=== PATIENT | female | born 1975 | race Caucasian/White ===

== ENCOUNTER 2017-06-10 10:18 | Outpatient (CLI) | payer OTHER ==
[2015-10-06 13:50] VITALS: BP 128/73
[2017-06-10 10:41] LABS: BASOPHILS % 0.5 (0.0-1.5); EOSINOPHILS % 3.2 % (0.0-6.8); MEAN CORPUSCULAR VOLUME 90.6 fl (80.0-100.0); MONOCYTES % 5.5 % (0.0-11.0); NEUTROPHILS # 3.6 # k/uL (1.4-7.7)
--- NOTE | 2017-06-10 15:39 | Diagnostic Imaging Report ---
Steff Oneill [facility] [address] [facility] [address] [address] Report Submission Date: Jun 10, 2017 11:14:34 AM ACID CONCENTRATOR Patient Study Name: SAQIB LAZARO Date: Jun 10, 2017 10:34:42 AM ACID CONCENTRATOR Modality Type: CR Gender: F Description: UPPER EXTREMITY : 79 Institution: [facility] Physician: Steff Oneill Examination: Plain film hands History: Hand discomfort Comparison exams: None available Findings: 3 views of the right and left hands demonstrate normal cortical margins. No fracture. No dislocation. Articulations without appreciable degenerative changes. No soft tissue abnormality. Impression: No acute osseous abnormality. Electronically signed on Jun 10, 2017 11:14:34 AM ACID CONCENTRATOR by: Holger ROSARIO
== END 2017-06-10 10:20 ==
LOC: LAB 10:18
PROVIDERS: ATTEND Internal Medicine Rheumatology
DX: M25.441 Effusion, right hand (principal); M25.442 Effusion, left hand; M06.4 Inflammatory polyarthropathy; R53.83 Other fatigue
CPT/HCPCS: 36415; 84443; 85025; 85651; 86140; 86200; 86812

== ENCOUNTER 2017-08-14 16:30 | Outpatient (CLI) | payer OTHER ==
[2015-10-06 13:50] VITALS: BP 128/73
[2017-08-14 16:48] LABS: BASOPHILS % 0.5 (0.0-1.5); EOSINOPHILS % 2.7 % (0.0-6.8); MEAN CORPUSCULAR HEMOGLOBIN 30.2 pg (28.0-34.0); MEAN CORPUSCULAR VOLUME 90.4 fl (80.0-100.0); MONOCYTES % 4.5 % (0.0-11.0); NEUTROPHILS # 5.8 # k/uL (1.4-7.7)
[2017-08-14 22:11] LABS: DIRECT BILIRUBIN <0.2 mg/dL (<0.4)
== END 2017-08-14 16:32 ==
LOC: LAB 16:30
PROVIDERS: ATTEND Internal Medicine Rheumatology
DX: L40.50 Arthropathic psoriasis, unspecified (principal); Z79.899 Other long term (current) drug therapy
CPT/HCPCS: 36415; 80076; 85025; 85651

== ENCOUNTER 2017-10-12 15:01 | Outpatient (CLI) | payer OTHER ==
[2015-10-06 13:50] VITALS: BP 128/73
--- NOTE | 2017-10-12 17:14 | Diagnostic Imaging Report ---
MARJORIE MARIE (TORRI) - OP [facility] [address] [facility].[address] [address] Report Submission Date: Oct 12, 2017 3:53:04 PM CDT Patient Study Name: SAQIB LAZARO Date: Oct 12, 2017 3:28:53 PM CDT Modality Type: DX Gender: F Description: LOWER EXTREMITY : 79 Institution: [facility] Physician: MARJORIE MARIE (TORRI) - OP Bilateral feet - 3 views Clinical history: BILATERAL FOOT PAIN X 2 MONTHS Findings: Examination of the right foot in plantar, lateral and oblique views demonstrates degenerative changes with calcaneal spurs on the lateral view. There is no evident fracture and no lytic or blastic lesion. Examination of the left foot in plantar, lateral and oblique views demonstrates postoperative changes consistent with previous ankle arthrodesis. Lag screws extending across the talonavicular joint are fractured at the level of the joint. Joint space is no longer visualized in the calcaneocuboid, talonavicular , tibiotalar or talocalcaneal joints. Impression: 1. Postoperative left ankle arthrodesis. 2. Degenerative changes. Electronically signed on Oct 12, 2017 3:53:04 PM CDT by: Ghulam ROSARIO
--- NOTE | 2017-10-13 06:30 | Diagnostic Imaging Report ---
DONI BRIGGS (AGRICULTURAL PRODUCTION ENGINEER) - ER [facility] [address] [address] [address] Report Submission Date: Oct 12, 2017 5:17:37 PM CDT Patient Study Name: JADON LAZARO Date: Oct 12, 2017 5:01:17 PM CDT Modality Type: DX Gender: F Description: UPPER EXTREMITY : [birth year] Institution: [facility] Physician: DONI BRIGGS (AGRICULTURAL PRODUCTION ENGINEER) - ER 2 views of the right elbow Clinical history: PAIN Findings: Examination of the right elbow in AP and lateral views fails to demonstrate evidence of fracture, dislocation or other bone or joint pathology. Electronically signed on Oct 12, 2017 5:17:37 PM CDT by: Ghulam ROSARIO
== END 2017-10-12 15:10 ==
LOC: RAD 15:01
PROVIDERS: ATTEND Nurse Practitioner Family
DX: M79.672 Pain in left foot (principal); M79.671 Pain in right foot

== ENCOUNTER 2017-10-22 09:41 | Outpatient (CLI) | payer OTHER ==
[2015-10-06 13:50] VITALS: BP 128/73
[2017-10-22 10:09] LABS: BASOPHILS % 0.4 (0.0-1.5); EOSINOPHILS % 1.4 % (0.0-6.8); MEAN CORPUSCULAR HEMOGLOBIN 30.8 pg (28.0-34.0); MEAN CORPUSCULAR VOLUME 92.8 fl (80.0-100.0); MONOCYTES % 6.1 % (0.0-11.0); NEUTROPHILS # 3.3 # k/uL (1.4-7.7)
[2017-10-22 18:21] LABS: DIRECT BILIRUBIN 0.2 mg/dL (<0.4); TOTAL PROTEIN 6.9 g/dL (6.0-8.5)
== END 2017-10-22 09:42 ==
LOC: LAB 09:41
PROVIDERS: ATTEND Internal Medicine Rheumatology
DX: L40.50 Arthropathic psoriasis, unspecified (principal)
CPT/HCPCS: 36415; 80076; 85025; 85651

== ENCOUNTER 2018-09-28 14:35 | Outpatient (CLI) | payer OTHER ==
[2015-10-06 13:50] VITALS: BP 128/73
--- NOTE | 2018-09-28 15:54 | Diagnostic Imaging Report ---
SHANTEL MARTINEZ [facility] [address] [facility] [address] [place] [address]. [id number] Report Submission Date: Sep 28, 2018 3:36:28 PM BLOWN FILM EXTRUSION OPERATOR Patient Study Name: SAQIB LAZARO Date: Sep 28, 2018 3:02:09 PM BLOWN FILM EXTRUSION OPERATOR Modality Type: DX Gender: F Description: BILAT FEET 3 VIEW : 79 Institution: [facility] Physician: SHANTEL MARTINEZ BILAT FEET 3 VIEW HISTORY: BILATERAL FOOT AND LEFT ANKLE PAIN. HX OF LEFT FOOT AND ANKLE SX. DENIES CHANCE OF . (Hx) COMPARISON: None FINDINGS: On the left side, the patient status post subtalar arthrodesis. The three horizontal screws traversing the talus and midfoot are fractured. An additional screw traverses the calcaneus. Flattening of the talus may be posttraumatic. No acute osseous fracture or dislocation is identified. There is diffuse soft tissue swelling. On the right side, the osseous structures are intact and well aligned without acute fracture or dislocation. There is mild tibiotalar osteoarthritis. Bone density is normal. IMPRESSION: 1. Left foot: Status post subtalar arthrodesis with fractures of multiple screws. 2. Right foot: Calcaneal spurs without acute fracture or dislocation. Electronically signed on Sep 28, 2018 3:36:28 PM BLOWN FILM EXTRUSION OPERATOR by: Jaspreet ROSARIO
--- NOTE | 2018-09-28 15:54 | Diagnostic Imaging Report ---
SHANTEL MARTINEZ [facility] [address] [facility] [address] [place] [address]. [id number] Report Submission Date: Sep 28, 2018 3:36:46 PM INDUSTRIAL SALES ENGINEER Patient Study Name: SAQIB LAZARO Date: Sep 28, 2018 3:02:09 PM INDUSTRIAL SALES ENGINEER Modality Type: DX Gender: F Description: ANKLE 3 VIEWS OR MORE : 79 Institution: [facility] Physician: SHANTEL MARTINEZ ANKLE 3 VIEWS OR MORE HISTORY: BILATERAL FOOT AND LEFT ANKLE PAIN. HX OF LEFT FOOT AND ANKLE SX. DENIES CHANCE OF . (Hx) COMPARISON: None FINDINGS: The patient status post subtalar arthrodesis. The three horizontal screws traversing the talus and midfoot are fractured. An additional screw traverses the calcaneus. Flattening of the talus may be posttraumatic. No acute osseous fracture or dislocation is identified. There is diffuse soft tissue swelling. IMPRESSION: Status post subtalar arthrodesis with fractures of multiple screws. Electronically signed on Sep 28, 2018 3:36:46 PM INDUSTRIAL SALES ENGINEER by: Jaspreet ROSARIO
== END 2018-09-28 14:36 ==
LOC: RAD 14:35
PROVIDERS: ATTEND Podiatrist Foot & Ankle Surgery
DX: M77.31 Calcaneal spur, right foot (principal); M79.672 Pain in left foot; Z87.81 Personal history of (healed) traumatic fracture
CPT/HCPCS: 73610

== ENCOUNTER 2018-10-07 08:23 | Outpatient (CLI) | payer OTHER ==
[2015-10-06 13:50] VITALS: BP 128/73
--- NOTE | 2018-10-08 13:55 | OP Clinic Progress Note ---
SUBJECTIVE: Anna Baeza is a 43-year-old female who presented today for follow- up of left foot and ankle pain. The patient had x-rays done recently and already had results given regarding broken hardware and obvious sign of what I see as fusion of the ankle joint and arthritis and problems in the subtalar joint of the left ankle. This is different than what the radiologists read demonstrates, however. The patient understands this and discussion was had with her regarding doing a steroid injection in the left subtalar joint as I believe this is some of the cause of her pain in her ankle. Her main complaints are pain in the ankle area of the left especially as well as pain on the outside of her left foot. This pain she describes as being in the fifth tarsal-metatarsal joint region. The patient would like to have the steroid injection today but is quite nervous about it. She does not admit to any fevers, chills, nausea, vomiting, shortness of breath or chest pain at this time. The patient denies looking for any good shoes to fit her previous Lo brace that she has at home and she is interested in going forward to try and get an Lo brace through [facility]. She is worried she may not be able to afford to do it if she has to put much money up front for it, though. We will see what we can do. OBJECTIVE: Vitals: Temperature 98.0 degrees Fahrenheit, heart rate 70, respiration rate 18, blood pressure 120/66. O2 saturation is 99% on room air. Vascular: 2+ DP and PT pulses left foot today. Capillary refill time is less than 3 seconds to the toes of the left foot. There is no significant edema noted, left foot. Dermatologic: There is no significant hyperkeratosis or porokeratosis noted, left foot. There is no erythema or open lesions noted. There are several scars about the left foot and ankle and left lower extremity from previous surgery. She has had several surgeries on her left leg. Musculoskeletal: There is virtually zero range of motion about the left subtalar joint or ankle joint. There is pain on palpation noted at the sinus tarsi region of the left ankle. There is also pain on palpation at the left proximal fifth TMT region as well as in the medial tarsal tunnel region where there is obviously something prominent that may be hardware or exostosis. There is also digital contracture noted of the left second toe which is tender for the patient also at times at the dorsal PIPJ. The patient has pain to the left plantar heel as well with no evidence of anything obvious on x-ray. Neurologic: Light touch sensation is intact to the toes bilaterally. ASSESSMENT AND PLAN: 1. Foot pain, M79.673. 2. Chronic pain of the left ankle, M25.572 and G89.29. 3. Left subtalar joint pain. PROCEDURE #1: The risks and benefits of a steroid injection to the left subtalar joint was discussed with the patient that include but are not limited to bleeding, infection, and the patient agreed both by written and verbal consent to go forward with this small procedure at this time. The consent was signed and placed in the chart. The subtalar joint sinus tarsi region was swabbed with an alcohol swab and an injection of 1 mL of 2% lidocaine plain and 1 mL of 0.5% Marcaine plain and 0.5 mL of dexamethasone 4 mg/mL and 0.5 mL of Kenalog 40 mg/mL were injected into the subtalar joint area. It was very difficult to get the needle in the subtalar joint but I believe I was able to get some in there. The patient definitely had a significant amount of pain with the needle going into the joint space and it was very tight. The patient overall did well, however, and the site was dressed with a Band-Aid. The patient did admit immediate relief in the ankle area where she had pain before as she stood up. She did not have pain in that area and only had pain in the left fifth TMT area now. We have encouraged the patient to bring her Lo brace in at the next visit. We will begin a prescription for [employer] to get an Lo brace for the left ankle. Hopefully the next one is smaller as it is a newer model compared to the 10-year-old brace she has. The patient is encouraged to look for a good shoe that would fit it. I shared with the patient that I do not feel there is any real good surgical option for her either at this time. I agree with her previous physicians there is not much we can do except for to, I believe, brace her ankle so that there is limited motion and thus limited pain. We will see how well this steroid injection helps. Return to the clinic as needed and we will discuss what needs to be done about the lateral left foot pain and other right foot issues as needed at her next visit. We will call to get that appointment set up for follow-up if she does not already have one set up so that we can discuss the right foot as well. Jhonatan CortesP.M. (Dictated/Not Signed) Cole Job#: [id number] MTDD
== END 2018-10-07 08:50 ==
LOC: POD 08:23
PROVIDERS: ATTEND Podiatrist Foot & Ankle Surgery
DX: M25.572 Pain in left ankle and joints of left foot (principal); M79.672 Pain in left foot; G89.29 Other chronic pain
CPT/HCPCS: 20605; 99203; G0463; J1100; J2001; J3301; J3490; A4554